=== PATIENT | female | born 1940 | race Asian ===

== ENCOUNTER 2021-09-20 01:22 | Inpatient (IN) | payer MEDICARE ==
[~2021-09-20] VITALS: Ht 154.9 cm; Wt 64.9 kg
[2021-09-20] VITALS (8 sets, daily range): BP systolic 124–169; BP diastolic 81–91
[~2021-09-20 01:22] MED LIST: ASPIRIN EC81 MG PO; DIPHENHYDR12.5 MG/5 PO; HYDROCHLOROTH12.5 MG; LISINOPRIL10 MG PO; MEDROL4 MG/DOSE-; METOCLOPRAMIDE10 MG PO; METOPROLOL TART50 MG PO; NORVASC10 MG PO
[2021-09-20 01:42] LABS: BASOPHILS % 0.4 % (0.0-1.0); EOSINOPHILS # (AUTO) 0.2 (0.0-0.4); EOSINOPHILS % 1.5 % (0.0-6.0); HEMATOCRIT 38.9 % (34.2-44.1); HEMOGLOBIN 12.5 g/dL (12.0-16.0); LYMPHOCYTES % 19.6 % (18.0-39.1); MEAN CORPUSCULAR HEMOGLOBIN 30.9 pg (28-32); MEAN CORPUSCULAR HGB CONC 32.1 g/dL (31-35); MONOCYTES # (AUTO) 0.7 (0.2-0.8); MONOCYTES % 6.6 % (4.4-11.3); NEUTROPHILS # (AUTO) 7.4 (2.1-6.9); NEUTROPHILS % 71.6 % (38.7-80.0); PLATELET COUNT 304 x10e3/uL (140-360); RED BLOOD COUNT 4.05 x10e6/uL (3.6-5.1); RED CELL DISTRIBUTION WIDTH 12.1 % (11.7-14.4)
[2021-09-20 01:52] LABS: INR 0.89; PROTHROMBIN TIME 12.8 seconds (11.9-14.5)
[2021-09-20 01:53] LABS: PARTIAL THROMBOPLASTIN TIME 27.8 seconds (23.8-35.5)
[2021-09-20 02:00] LABS: ALBUMIN 3.9 g/dL (3.5-5.0); ANION GAP 14.5 mmol/L (8-16); CALCIUM 9.4 mg/dL (8.4-10.2); CREATININE, SERUM 1.22 mg/dL (0.57-1.11); POTASSIUM 3.5 mmol/L (3.5-5.1)
[2021-09-20 02:06] LABS: CREATINE KINASE MB 2.4 ng/mL (0-5.0)
[2021-09-20] MEDS ORDERED: HEPARIN SOD (PORCINE) 5,000 UNIT/ML VIAL IV ONE (02:30)
[2021-09-20] MEDS ORDERED: HEPARIN 25,000 UNIT DRIP IV ONE (02:58)
[2021-09-20] MEDS: HEPARIN 25,000 UNIT 700 UNIT in DEXTROSE 5% 250ML 250 ML IV SCH ×2 (03:10→07:48)
[2021-09-20] MEDS ORDERED: HYDROCHLOROTH12.5 MG PO (05:40)
[2021-09-20] MEDS ORDERED: LISINOPRIL10 MG PO (05:40)
[2021-09-20 10:22] LABS: CREATINE KINASE MB 1.8 ng/mL (0-5.0)
[2021-09-20] MEDS ORDERED: METOPROLOL SUCCINATE 25 MG TAB XL PO ONE (11:00)
[2021-09-20] MEDS ORDERED: CLOPIDOGREL BISULFATE 75 MG TAB PO ONE (11:15)
[2021-09-20] MEDS ORDERED: ASPIRIN 81 MG ENTERIC COATED PO ONE (11:30)
[2021-09-20] MEDS: LISINOPRIL 10 MG TAB PO SCH (17:14)
[2021-09-20] MEDS: ATORVASTATIN 40 MG TAB PO SCH (20:40)
[2021-09-20] MEDS: TEMAZEPAM 7.5 MG CAP PO PRN (20:40)
[2021-09-20 21:17] LABS: CREATINE KINASE MB 1.4 ng/mL (0-5.0)
[2021-09-21] VITALS (8 sets, daily range): BP systolic 100–155; BP diastolic 61–95
[2021-09-21 07:14] LABS: BASOPHILS # (AUTO) 0.1 (0.0-0.1); BASOPHILS % 0.6 % (0.0-1.0); EOSINOPHILS # (AUTO) 0.3 (0.0-0.4); EOSINOPHILS % 3.5 % (0.0-6.0); HEMATOCRIT 35.6 % (34.2-44.1); HEMOGLOBIN 11.3 g/dL (12.0-16.0); LYMPHOCYTES # (AUTO) 1.9 (1.0-3.2); LYMPHOCYTES % 22.5 % (18.0-39.1); MEAN CORPUSCULAR HGB CONC 31.7 g/dL (31-35); MEAN CORPUSCULAR VOLUME 97.5 fL (81-99); MONOCYTES # (AUTO) 0.6 (0.2-0.8); MONOCYTES % 6.7 % (4.4-11.3); NEUTROPHILS # (AUTO) 5.7 (2.1-6.9); NEUTROPHILS % 66.3 % (38.7-80.0); PLATELET COUNT 283 x10e3/uL (140-360); RED BLOOD COUNT 3.65 x10e6/uL (3.6-5.1); RED CELL DISTRIBUTION WIDTH 12.2 % (11.7-14.4)
[2021-09-21 07:29] LABS: ANION GAP 12.3 mmol/L (8-16); CALCIUM 8.9 mg/dL (8.4-10.2); CHOL/HDL RATIO 3.2 (3.0-3.6); CREATININE, SERUM 1.03 mg/dL (0.57-1.11); PHOSPHORUS 3.2 MG/DL (2.3-4.7); POTASSIUM 4.3 mmol/L (3.5-5.1)
[2021-09-21] MEDS ORDERED: OLMESARTAN 20 MG TAB PO SCH (09:00)
[2021-09-21] MEDS: HYDROCHLOROTHIAZIDE 25 MG TAB PO SCH (09:54)
[2021-09-21] MEDS: CLOPIDOGREL BISULFATE 75 MG TAB PO SCH (09:54)
[2021-09-21] MEDS: ASPIRIN 81 MG ENTERIC COATED PO SCH (09:54)
[2021-09-21] MEDS: LISINOPRIL 10 MG TAB PO SCH ×2 (09:55→17:13)
[2021-09-21] MEDS: METOPROLOL SUCCINATE 25 MG TAB XL PO SCH (09:55)
[2021-09-21] MEDS ORDERED: BENZONATATE 100 MG CAP PO PRN (18:00)
[2021-09-21] MEDS: HEPARIN 25,000 UNIT 700 UNIT in DEXTROSE 5% 250ML 250 ML IV SCH (19:09)
[2021-09-21] MEDS: ATORVASTATIN 40 MG TAB PO SCH (20:45)
[2021-09-21] MEDS: TEMAZEPAM 7.5 MG CAP PO PRN (23:27)
[2021-09-22] VITALS (14 sets, daily range): BP systolic 128–158; BP diastolic 64–98
[2021-09-22] MEDS: ASPIRIN 81 MG ENTERIC COATED PO SCH (09:00)
[2021-09-22] MEDS: CLOPIDOGREL BISULFATE 75 MG TAB PO SCH (09:00)
[2021-09-22] MEDS: HYDROCHLOROTHIAZIDE 25 MG TAB PO SCH (09:00)
[2021-09-22] MEDS: LISINOPRIL 10 MG TAB PO SCH ×2 (09:00→17:19)
[2021-09-22] MEDS: METOPROLOL SUCCINATE 25 MG TAB XL PO SCH (09:00)
[2021-09-22] MEDS ORDERED: FENTANYL CITRATE/PF 100MCG/2 ML INJ ONE (13:05)
[2021-09-22] MEDS ORDERED: IOPAMIDOL 370 MG/ML 200 ML INFUS..BTL INJ ONE (13:05)
[2021-09-22] MEDS ORDERED: LIDOCAINE HCL 2% LOCAL 20 ML VIAL ONE (13:05)
[2021-09-22] MEDS ORDERED: SODIUM CHLORIDE 0.9% 1000ML 1,000 ML ONE (13:05)
[2021-09-22] MEDS ORDERED: MIDAZOLAM HCL 2 MG/2 ML VIAL ONE (13:05)
[2021-09-22] MEDS ORDERED: HEPARIN SOD/SOD CHLORIDE 2,000 ML ONE (13:05)
[2021-09-22] MEDS ORDERED: VERAPAMIL HCL 2.5 MG/ML 2 ML VIAL ONE (13:25)
[2021-09-22] MEDS: ATORVASTATIN 40 MG TAB PO SCH (20:54)
[2021-09-23] VITALS: BP 141/94
[2021-09-23 04:00] VITALS: BP 154/89
[2021-09-23 08:15] VITALS: BP 144/93
[2021-09-23 08:29] VITALS: BP 144/93
[2021-09-23] MEDS: CLOPIDOGREL BISULFATE 75 MG TAB PO SCH (09:07)
[2021-09-23] MEDS: ASPIRIN 81 MG ENTERIC COATED PO SCH (09:07)
[2021-09-23] MEDS: HYDROCHLOROTHIAZIDE 25 MG TAB PO SCH (09:07)
[2021-09-23] MEDS: METOPROLOL SUCCINATE 25 MG TAB XL PO SCH (09:08)
[2021-09-23] MEDS: LISINOPRIL 10 MG TAB PO SCH (09:08)
== END 2021-09-23 11:25 | disposition home or self-care (01) | DRG 282 ==
LOC: ER 01:31 → ERHOLD 02:22 → MED/SURG3 05:04
PROVIDERS: ADMIT Internal Medicine; ATTEND Internal Medicine
PROC: 4A023N7 Measurement of Cardiac Sampling and Pressure, Left Heart, Percutaneous Approach (ICD-10-PCS; principal; 2021-09-22)
PROC: B2111ZZ Fluoroscopy of Multiple Coronary Arteries using Low Osmolar Contrast (ICD-10-PCS; 2021-09-22)
PROC: B2151ZZ Fluoroscopy of Left Heart using Low Osmolar Contrast (ICD-10-PCS; 2021-09-22)
DX: I16.1 Hypertensive emergency (principal); I21.A1 Myocardial infarction type 2; I10 Essential (primary) hypertension; Z87.891 Personal history of nicotine dependence; F41.9 Anxiety disorder, unspecified; Z20.822 Contact with and (suspected) exposure to COVID-19
CPT/HCPCS: 36415; 70450; 71045; 80048; 80053; 80061; 82550; 82553; 83036; 83735; 83880; 84100; 84443; 84484; 85025; 85610; 85730; 93005; 93306; 93458; 94799; 99152; 99284; C1769; C1887; J1644; J2001; J2250; J3010; J7030; Q9967; U0002

== ENCOUNTER 2021-09-28 22:08 | Emergency (ER) | payer MEDICARE ==
[~2021-09-28] VITALS: Ht 154.9 cm; Wt 64.9 kg
[~2021-09-28 22:08] MED LIST changes: +HYDROCHLOROTH12.5 MG PO
[2021-09-28 23:08] LABS: ANION GAP 16.9 mmol/L (8-16); CALCIUM 9.4 mg/dL (8.4-10.2); CREATININE, SERUM 1.43 mg/dL (0.57-1.11); POTASSIUM 3.9 mmol/L (3.5-5.1)
[2021-09-28] MEDS ORDERED: CYCLOBENZAPRINE5 MG PO (23:15)
[2021-09-28 23:57] VITALS: BP 123/78
== END 2021-09-28 23:31 | disposition home or self-care (01) ==
LOC: ER 22:13
DX: R25.2 Cramp and spasm (principal); I10 Essential (primary) hypertension; Z85.3 Personal history of malignant neoplasm of breast; Z87.448 Personal history of other diseases of urinary system
CPT/HCPCS: 36415; 80048; 93005; 99283

== ENCOUNTER 2022-01-16 11:15 | Emergency (ER) | payer MEDICARE ==
[~2022-01-16] VITALS: Ht 154.9 cm; Wt 64.9 kg
[~2022-01-16 11:15] MED LIST changes: +CYCLOBENZAPRINE5 MG PO
[2022-01-16] MEDS ORDERED: KETOROLAC TROMETHAMINE 60 MG/2 ML VIAL IM ONE (11:45)
[2022-01-16] MEDS ORDERED: DIAZEPAM 2 MG TAB PO ONE (12:00)
[2022-01-16] MEDS ORDERED: VALIUM2 MG PO (12:05)
== END 2022-01-16 12:16 | disposition home or self-care (01) ==
LOC: ER 11:28
DX: R25.2 Cramp and spasm (principal); R10.31 Right lower quadrant pain; Y93.H2 Activity, gardening and landscaping; I10 Essential (primary) hypertension; Z85.3 Personal history of malignant neoplasm of breast
CPT/HCPCS: 99282; J1885

== ENCOUNTER 2025-06-10 14:50 | Emergency (ER) | payer MEDICARE ==
[~2025-06-10] VITALS: Ht 147.3 cm; Wt 59.4 kg
[~2025-06-10 14:50] MED LIST changes: +TOPROL XL25 MG PO; +VALIUM2 MG PO
[2025-06-10 14:55] VITALS: PULSE 90; RESP 17; TEMP 99; O2SAT 97
== END 2025-06-10 15:26 | disposition home or self-care (01) ==
LOC: ER 15:00
DX: I10 Essential (primary) hypertension (principal); Z85.3 Personal history of malignant neoplasm of breast
CPT/HCPCS: 99283